=== PATIENT | male | born 1970 | race Caucasian/White ===

== ENCOUNTER 2018-03-17 14:28 | Emergency (ER) | payer BC ==
[2018-03-17] MEDS ORDERED: Lactated Ringer 1,000 ML IV ONE ×2 (14:47→16:59)
[2018-03-17 15:01] LABS: EOSINOPHILE ABSOLUTE 0.1 Th/cmm (0.1-0.4); LYMPHOCYTE ABSOLUTE 0.9 Th/cmm (1.5-3.0); MEAN CORPUSCULAR HEMOGLOBIN 30.9 pg (26.0-30.0); RED CELL DISTRIBUTION WIDTH 12.2 % (11.5-20.0)
[2018-03-17 15:03] LABS: % BASOPHILS 0.1 % (0.0-2.0); % EOSINOPHILS 0.8 % (0.0-5.0); % LYMPHOCYTES 7.3 % (20.0-50.0); % NEUTROPHILS 88.8 % (40.0-80.0); HEMATOCRIT 43.5 % (41.0-60); MEAN CORPUSCULAR HGB CONC 34.4 pg (28.0-36.0); MEAN PLATELET VOLUME 8.4 fl; MONOCYTE ABSOLUTE 0.4 Th/cmm (0.3-1.0); NEUTROPHILE ABSOLUTE 10.9 Th/cmm (1.8-8.0); PLATELET COUNT 240 Th/cmm (150-400); RED BLOOD COUNT 4.83 Mil/cmm (4.30-5.70); WHITE BLOOD COUNT 12.3 Th/cmm (4.8-10.8)
[2018-03-17 15:10] LABS: URINE SOURCE CLEAN C
[2018-03-17 15:22] LABS: ALB/GLOB RATIO 1.5 (1.0-1.8); ALBUMIN 4.4 gm/dL (4.2-5.5); ALKALINE PHOSPHATASE 105 U/L (34-104); AMYLASE SERUM 37 U/L (29-103); ANION GAP 14.1 (7.0-16.0); BAND NEUTROPHILE 2 % (0-10); BILIRUBIN,TOTAL 0.7 mg/dL (0.3-1.0); BUN - UREA NITROGEN 13 mg/dL (7-25); CALCIUM SERUM 9.2 mg/dL (8.6-10.3); CARBON DIOXIDE 21.2 mEq/L (21.0-31.0); CHLORIDE 104 mEq/L (98-107); CREATININE - SERUM 0.8 mg/dL (0.7-1.3); GFR AFRICAN-AMERICAN > 60.0 ml/min (>90); GFR NON AFRICAN-AMERICAN > 60.0 ml/min; GLUCOSE 94 mg/dL (70-105); LIPASE 10 U/L (11-82); LYMPHOCYTE 7 % (20-50); MAGNESIUM 1.6 mg/dL (1.9-2.7); MONOCYTE 6 % (2-10); NEUTROPHILS 85 % (40-80); PHOSPHOROUS 2.9 mg/dL (2.5-5.0); POTASSIUM SERUM 4.3 mEq/L (3.5-5.1); SGOT 14 U/L (13-39); SGPT/ALT 11 U/L (7-52); SODIUM SERUM 135 mEq/L (136-145); TOTAL PROTEIN,SERUM 7.3 gm/dL (6.0-8.3)
[2018-03-17 15:37] LABS: URINE BILIRUBIN NEGATIVE (NEGATIVE); URINE BLOOD SMALL (NEGATIVE); URINE CLARITY CLEAR (CLEAR); URINE COLOR YELLOW; URINE GLUCOSE (UA) NEGATIVE (NEGATIVE); URINE KETONE TRACE mg/dL (NEGATIVE); URINE MICROSCOPIC INDICATED? YES
[2018-03-17 15:38] LABS: URINE BACTERIA OCCASIONAL /hpf (NONE SEEN); URINE EPITHELIAL CELLS OCCASIONAL /lpf (FEW); URINE LEUKOCYTE ESTERASE NEGATIVE (NEGATIVE); URINE NITRATE NEGATIVE (NEGATIVE); URINE PH 5.5 (4.6 - 8.0); URINE PROTEIN NEGATIVE (NEGATIVE); URINE RBC 0-2 /hpf (0-5); URINE UROBILINOGEN 0.2 E.U./dL (0.2 - 1.0); URINE WBC 0-2 /hpf (0-5)
--- NOTE | 2018-03-17 17:31 | ED Physician Chart ---
ED Chief Complaint/HPI - Patient Information Date Seen:: 03/17/18 Time Seen:: 14:40 Chief Complaint:: abdominal pain, loose stools, N and V x 1 History of Present Illness:: abdominal pain, loose stools, N and V x 1 a day after drinking an entire bottle of wine. Allergies:: Allergies Allergy/AdvReac Type Severity Reaction Status Date / Time No Known Allergies Allergy Verified 03/17/18 14:38 Vitals:: Vital Signs - 8 hr 03/17/18 03/17/18 03/17/18 14:39 14:58 16:50 Temp 99.4 F 100.7 F 99.8 F HR 79 97 76 RR 16 18 18 BP 127/71 103/58 97/58 O2 Sat % 98 99 99 ED Review of Systems - Review of Systems General/Constitutional: No fever, No chills, No weight loss, No weakness, No diaphoresis, No edema, No loss of appetite Skin: No skin lesions, No rash, No bruising Head: No headache, No light-headedness Eyes: No loss of vision, No pain, No diplopia ENT: No earache, No nasal drainage, No sore throat, No tinnitus Neck: No neck pain, No swelling, No thyromegaly, No stiffness, No mass noted Cardio Vascular: No chest pain, No palpitations, No PND, No orthopnea, No edema Pulmonary: No SOB, No cough, No sputum, No wheezing GI: Nausea, Vomiting, Diarrhea, Pain G/U: No dysuria, No frequency, No hematuria Musculoskeletal: No bone or joint pain, No back pain, No muscle pain Endocrine: No polyuria, No polydipsia Psychiatric: No prior psych history, No depression, No anxiety, No suicidal ideation Hematopoietic: No bruising, No lymphadenopathy Allergic/Immuno: No urticaria, No angioedema Neurological: No syncope, No focal symptoms, No weakness, No paresthesia, No headache, No seizure, No dizziness, No confusion, No vertigo ED Past Medical History - Past Medical History Obtainable: Yes Past Medical History: No significant medical hx Family Medical History - Family Member Mother History Unknown: Yes Ethnicity: ED Physical Exam - Physical Examination General/Constitutional: Awake, Well-developed, well-nourished, Alert, GCS 15, Non-toxic appearing, Ambulatory Other Gen/Cons comments:: Abdominal pain of 7 out of 10. Head: Atraumatic Eyes: Lids, conjuctiva normal, PERRL, EOMI Skin: Nl inspection, No rash, No skin lesions, No ecchymosis, Well hydrated, No lymphadenopathy ENMT: External ears, nose nl, Nasal exam nl, Lips, teeth, gums nl Neck: Nontender, Full ROM w/o pain, No JVD, No nuchal rigidity, No bruit, No mass, No stridor Respiratory: Nl effort/Exclusion, Clear to Auscultation, No Wheeze/Rhonchi/Rales Cardio Vascular: RRR, No murmur, gallop, rubs, NL S1 S2 GI: Normal BS's, Nondistended, No mass/bruits, No McBurney tenderness, Rectum exam nl Other GI comments:: Tenderness located in the left lower quadrant. : No CVA tenderness Extremities: No tenderness or effusion, Full ROM, normal strength in all extremities, No edema, Normal digits & nails Neuro/Psych: Alert/oriented, Normal sensory exam, Normal motor strength, Judgement/insight normal, Mood normal, Normal gait, No focal deficits Misc: Normal back, No paraspinal tenderness ED Labs/Radiology/EKG Results - Lab Results Results: Laboratory Tests 03/17/18 03/17/18 03/17/18 14:30 14:45 14:55 WBC 12.3 H RBC 4.83 Hgb 15.0 Hct 43.5 MCV 90.0 MCH 30.9 H MCHC Differential 34.4 RDW 12.2 Plt Count 240 MPV 8.4 Neutrophils % 88.8 H Band Neutrophils % 2 Lymphocytes % 7.3 L Monocytes % 3.0 Eosinophils % 0.8 Basophils % 0.1 Neutrophils (Manual) 85 H Lymphocytes 7 L Monocytes 6 Sodium Potassium Chloride Carbon Dioxide Anion Gap BUN Creatinine Est GFR ( Amer) Est GFR (Non-Af Amer) BUN/Creatinine Ratio Glucose Calcium Phosphorus Magnesium Total Bilirubin AST ALT Alkaline Phosphatase Total Protein Albumin Globulin Albumin/Globulin Ratio Amylase Lipase Urine Source CLEAN C Urine Color YELLOW Urine Clarity CLEAR Urine pH 5.5 Ur Specific [place] > 1.030 H Urine Protein NEGATIVE Urine Glucose (UA) NEGATIVE Urine Ketones TRACE Urine Blood SMALL H Urine Nitrate NEGATIVE Urine Bilirubin NEGATIVE Urine Urobilinogen 0.2 Ur Leukocyte Esterase NEGATIVE Urine RBC 0-2 H Urine WBC 0-2 Ur Epithelial Cells OCCASIONAL Urine Bacteria OCCASIONAL Stool Occult Blood NEGATIVE 03/17/18 14:55 WBC RBC Hgb Hct MCV MCH MCHC Differential RDW Plt Count MPV Neutrophils % Band Neutrophils % Lymphocytes % Monocytes % Eosinophils % Basophils % Neutrophils (Manual) Lymphocytes Monocytes Sodium 135 L Potassium 4.3 Chloride 104 Carbon Dioxide 21.2 Anion Gap 14.1 BUN 13 Creatinine 0.8 Est GFR ( Amer) > 60.0 Est GFR (Non-Af Amer) > 60.0 BUN/Creatinine Ratio 16.3 Glucose 94 Calcium 9.2 Phosphorus 2.9 Magnesium 1.6 L Total Bilirubin 0.7 AST 14 ALT 11 Alkaline Phosphatase 105 H Total Protein 7.3 Albumin 4.4 Globulin 2.9 Albumin/Globulin Ratio 1.5 Amylase 37 Lipase 10 L Urine Source Urine Color Urine Clarity Urine pH Ur Specific [place] Urine Protein Urine Glucose (UA) Urine Ketones Urine Blood Urine Nitrate Urine Bilirubin Urine Urobilinogen Ur Leukocyte Esterase Urine RBC Urine WBC Ur Epithelial Cells Urine Bacteria Stool Occult Blood ED Assessment - Assessment General Assessment: After 2 liters of fluid, patient feels 100% better. He also had some jello and is ready to go home. ED Septic Shock - . Is Septic Shock (SBP<90, OR Lactate>4 mmol\L) present?: No - <6hrs of presentation: Vital Signs: Vital Signs - 8 hr 03/17/18 03/17/18 03/17/18 14:39 14:58 16:50 Temp 99.4 F 100.7 F 99.8 F HR 79 97 76 RR 16 18 18 BP 127/71 103/58 97/58 O2 Sat % 98 99 99 ED Reassessment (Disposition) - Reassessment Reassessment:: patient states that his abdominal pain is down from a 7 to a 2 or 3. Reassessment Condition:: Improved - Diagnosis Diagnosis:: Abdominal pain, resolved Dehydration Viral syndrome. - Aftercare/Follow up Instructions Medication Prescribed:: Zofran ODT prn - Patient Disposition Discharge/Transfer:: Home
--- NOTE | 2018-03-18 08:45 | Diagnostic Imaging Report ---
CT scan abdomen and pelvis without intravenous contrast HISTORY: Pain Total DLP equals 380 CTDI equals 7.8 Axial sections were obtained from the xiphoid process down to the pubic symphysis. The liver exhibits a normal size and contour. No focal lesions. The spleen appears normal. No abnormality seen in the region of the pancreas. No focal renal lesions. No hydronephrosis. Findings consistent with surgical suture material noted in the pericecal region consistent with the patient's history of prior appendectomy. There is mild haziness noted in the right lower quadrant. The finding is of questionable significance. Mild inflammatory change cannot be excluded. Clinical correlation is needed. No abnormal soft tissue masses or fluid collections seen within the pelvis. IMPRESSION: 1. Findings consistent with the patient's history of a prior appendectomy 2. Mild haziness within the fatty tissues of the right lower quadrant. Exact significance is uncertain. Mild inflammatory change cannot be excluded. Clinical correlation is needed.
== END 2018-03-17 18:30 | disposition home or self-care (01) ==
LOC: ER 14:28
DX: E86.0 Dehydration (principal); B34.9 Viral infection, unspecified; R10.32 Left lower quadrant pain
CPT/HCPCS: 36415-UA; 80053-TC; 81001-TC; 82150-TC; 82270-TC; 83690-TC; 83735-TC; 84100-TC; 85007-TC; 85025-TC; 87046-90; Z7610